=== PATIENT | female | born 1970 | race Caucasian/White ===

== ENCOUNTER 2017-01-14 11:43 | Emergency (ER) | payer OTHER ==
[2017-01-14 11:49] VITALS: BP 126/84; PULSE 76; RESP 18; TEMP 98.5; O2SAT 100
--- NOTE | 2017-01-14 12:48 | C.PDOC ---
History Of Present Illness 46 y/o female c/o right heel pain x 1 month, with no recalled injury. pt taking 200 mg advil two times a day, using icy hot with no improvement, pain worse with walking. no hx gout, no fever or chills. no numbness or tingling. Time Seen by Provider: 01/14/17 12:06 Chief Complaint (Nursing): Lower Extremity Problem/Injury History Per: Patient History/Exam Limitations: no limitations Onset/Duration Of Symptoms: Persistent (1 month ) Current Symptoms Are (Timing): Still Present Recent travel outside of the [place]: No - Ankle/Foot Description Of Injury: Other (unknown mechanism, denies injury ) Alleviating Factor(s): OTC Pain Medication (Advil), Other (Icy hot ) Past Medical History Reviewed: Historical Data, Nursing Documentation, Vital Signs Vital Signs: Last Vital Signs Temp 98.5 F 01/14/17 11:46 Pulse 76 01/14/17 11:46 Resp 18 01/14/17 11:46 BP 126/84 01/14/17 11:46 Pulse Ox 100 01/14/17 13:57 Family History: States: Unknown Family Hx - Social History Hx Tobacco Use: No Hx Alcohol Use: Yes Hx Substance Use: No - Immunization History Hx Tetanus Toxoid Vaccination: No Hx Influenza Vaccination: No Hx Pneumococcal Vaccination: No Review Of Systems Constitutional: Negative for: Fever, Chills Musculoskeletal: Positive for: Foot Pain (right heel pain ) Neurological: Negative for: Weakness, Numbness Physical Exam - Physical Exam Appears: Non-toxic, No Acute Distress Skin: Warm, Dry Head: Atraumatic, Normacephalic Eye(s): bilateral: Normal Inspection, PERRL, EOMI Oral Mucosa: Moist ED Course And Treatment O2 Sat by Pulse Oximetry: 100 Medical Decision Making Medical Decision Making: heel spur and calcifications in posterior heel noted- tendonitis, heel spur, d/ .c with ortho shoe, f/u podiatry, nsaids Disposition Counseled Patient/Family Regarding: Studies Performed, Diagnosis, Need For Followup, Rx Given - Disposition Referrals: Podiatry Clinic [Outside] Disposition: HOME/ ROUTINE Disposition Time: 13:55 Condition: STABLE Additional Instructions: Wear shoe if it provides comfort. Cold compresses to painful area several times a day. Take ibuprofen with food as prescribed. Follow up with podiatry. Prescriptions: Ibuprofen [Motrin] 600 mg PO TID #30 tab Instructions: Heel Spur (ED) Forms: [facility] (Thai), General Discharge Instructions - Clinical Impression Clinical Impression: Pain of right heel - PA / [employer] / Resident Statement MD/DO has reviewed & agrees with the documentation as recorded. - Scribe Statement The provider has reviewed the documentation as recorded by the Scribe Noemy Yousif All medical record entries made by the Elianaibem were at my direction and personally dictated by me. I have reviewed the chart and agree that the record accurately reflects my personal performance of the history, physical exam, medical decision making, and the department course for this patient. I have also personally directed, reviewed, and agree with the discharge instructions and disposition.
--- NOTE | 2017-01-14 18:38 | RAD ---
PROCEDURE: Right Foot Radiographs. HISTORY: heel pain COMPARISON: None. FINDINGS: BONES: No evidence of acute fracture. Small calcaneal spur noted. JOINTS: Normal. SOFT TISSUES: Normal. OTHER FINDINGS: None. IMPRESSION: No evidence of acute fracture or dislocation. Small calcaneal spur.
== END 2017-01-14 14:00 | disposition home or self-care (01) ==
LOC: C.ER 11:43
DX: M79.671 Pain in right foot (principal)
CPT/HCPCS: 73630; 96372; 99284; J1885